=== PATIENT | female | born 1995 | race Caucasian/White ===

== ENCOUNTER 2018-08-28 12:50 | Emergency (ER) | payer MEDICAID, OTHER ==
[~2018-08-28] VITALS: Ht 154.9 cm; Wt 88.2 kg
[~2018-08-28 12:50] MED LIST: CEPH500 PO
[2018-08-28] MEDS ORDERED: LIDOCAINE 1% 10 ML VIAL INJ ONE (14:30)
[2018-08-28 16:07] VITALS: BP 121/79
== END 2018-08-28 16:37 | disposition home or self-care (01) ==
LOC: EMS 12:51
DX: S61.212A Laceration without foreign body of right middle finger without damage to nail, initial encounter (principal); W45.8XXA Other foreign body or object entering through skin, initial encounter; Y93.89 Activity, other specified; Y92.89 Other specified places as the place of occurrence of the external cause; Y99.8 Other external cause status
CPT/HCPCS: 12001; 99283; J3490

== ENCOUNTER 2018-08-30 08:54 | Emergency (ER) | payer OTHER ==
[~2018-08-30] VITALS: Ht 154.9 cm; Wt 88.2 kg
[2018-08-30 08:56] VITALS: BP 105/68
== END 2018-08-30 10:28 | disposition left against medical advice (07) ==
LOC: EMS 08:56
DX: Z53.21 Procedure and treatment not carried out due to patient leaving prior to being seen by health care provider (principal)